=== PATIENT | female | born 1980 | race African-American/Black ===

== ENCOUNTER 2019-10-15 19:28 | Emergency (ER) | payer OTHER ==
--- NOTE | 2019-10-15 20:30 | CR ---
Lumbar spine: AP, lateral and coned-down lateral view centered to the lumbosacral junction were obtained. Mild posterior disc space narrowing is seen at L5-S1. Other disc spaces are maintained. Vertebral body heights are maintained. Mild scattered anterior endplate osteophytes are seen. Pedicles are intact. Transverse and spinous processes are also felt to be intact. Impression: 1. Slight degenerative change as noted above. 2. Nothing acute is appreciated on 3 view lumbar spine study. Diagnostic code #2 Study was dictated in MDT
[2019-10-15] MEDS ORDERED: metroNIDAZOLE 250 MG Tab PO ONE (21:12)
[2019-10-15] MEDS ORDERED: Fluconazole 150 MG Tab PO ONE (21:13)
--- NOTE | 2019-10-15 21:16 | EDM.PDOC ---
ED HPI GENERAL MEDICAL PROBLEM - General Chief Complaint: Back Pain or Injury Stated Complaint: BACK PAIN Time Seen by Provider: 10/15/19 19:38 Source of Information: Reports: Patient History Limitations: Reports: No Limitations - History of Present Illness INITIAL COMMENTS - FREE TEXT/NARRATIVE: HISTORY AND PHYSICAL: History of present illness: Patient is a 39-year-old female who presents to the emergency room with complaints of low back pain for approximately 3 weeks. She states the back pain is fairly constant but will fluctuate in severity. She has been trying to take walks more frequently as she thought maybe it was from sitting around. She denies any injury, trauma or falls. Pain does not improve or worsen with physical activity/stretching. Patient denies any fever, chills, headache, change in vision, syncope or near syncope. Denies any chest pain, back pain, shortness of breath or cough. Denies any abdominal pain, nausea, vomiting, diarrhea, constipation or dysuria. Has not noted any blood in urine or stool. Patient has been eating and drinking appropriately. Review of systems: As per history of present illness and below otherwise all systems reviewed and negative. Past medical history: As per history of present illness and as reviewed below otherwise noncontributory. Surgical history: As per history of present illness and as reviewed below otherwise noncontributory. Social history: See social history for further information Family history: As per history of present illness and as reviewed below otherwise noncontributory. Physical exam: General: Well-developed and well-nourished 39-year-old female. Alert and oriented. Nontoxic-appearing and in no acute distress. HEENT: Atraumatic, normocephalic, pupils equal and reactive bilaterally, negative for conjunctival pallor or scleral icterus, mucous membranes moist, TMs normal bilaterally, throat clear, neck supple, nontender, trachea midline. No drooling or trismus noted. No meningeal signs. No hot potato voice noted. Lungs: Clear to auscultation, breath sounds equal bilaterally, chest nontender. Heart: S1S2, regular rate and rhythm without overt murmur Abdomen: Soft, nondistended, nontender. Negative for masses or hepatosplenomegaly. Negative for costovertebral tenderness. Pelvis: Stable nontender. Genitourinary: Deferred. Rectal: Deferred. C-spine/Back: No pinpoint vertebral tenderness upon palpation. No crepitus, step-offs or obvious deformities. Patient is ambulatory into the emergency room without difficulty or deficit. Able to rock back on heels and walk on toes. Denies any urinary or fecal incontinence. Denies any numbness, tingling or saddle paresthesia. No concerns of serious infection, fracture or cord compression, or cauda equina syndrome. Deep tendon reflexes brisk bilaterally. Skin: Intact, warm, dry. No lesions or rashes noted. Extremities: Atraumatic, moves all extremities per self without difficulty or deficits, negative for cords or calf pain. Neurovascular unremarkable. Neuro: Awake, alert, oriented. Cranial nerves II through XII unremarkable. Cerebellum unremarkable. Motor and sensory unremarkable throughout. Exam nonfocal. Notes: X-ray shows slight degenerative changes. No acute findings are noted. Patient does have bacterial vaginosis and candidiasis noted on the OMAR swab. She will get her first dose for these here in the emergency room as the pharmacy is closed. We discussed signs and symptoms that would prompt her to return to the emergency room. 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 Medication and supportive care measures were reviewed and discussed. Voices understanding and is agreeable to plan of care. Denies any further questions or concerns at this time. Diagnostics: Bar spine x-ray, OMAR, UA, urine Therapeutics: Flagyl, Diflucan Prescription: Flagyl Voltaren Impression: Bacterial vaginosis Candidiasis Back Pain Plan: 1. You have a bacterial infection in your vagina. While taking the Flagyl - please abstain from alcohol and sexual intercourse. You can resume both activities once your antibiotic is completed. 2. Alternate Tylenol and/or ibuprofen as directed. 3. Follow up with your primary care provider as we discussed. Return to the ED as needed and as discussed. Definitive disposition and diagnosis as appropriate pending reevaluation and review of above. Lower Back Pain Score (Numeric/FACES): 10 - Related Data Allergies Allergy/AdvReac Type Severity Reaction Status Date / Time No Known Allergies Allergy Verified 10/15/19 19:48 Home Meds: Home Meds Diclofenac Sodium [Voltaren] 75 mg PO BIDMEALS PRN #30 tab.cr 10/15/19 [Rx] amLODIPine [Norvasc] 5 mg PO DAILY 10/15/19 [History] metroNIDAZOLE [Flagyl] 500 mg PO BID 7 Days #14 tab 10/15/19 [Rx] Past Medical History - Past Health History Medical/Surgical History: Denies Medical/Surgical History HEENT History: Reports: None Cardiovascular History: Reports: Hypertension Respiratory History: Reports: None Gastrointestinal History: Reports: None Genitourinary History: Reports: None 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 Musculoskeletal History: Reports: None Neurological History: Reports: None Psychiatric History: Reports: None Endocrine/Metabolic History: Reports: None Hematologic History: Reports: None Immunologic History: Reports: None Oncologic (Cancer) History: Reports: None Dermatologic History: Reports: None - Infectious Disease History Infectious Disease History: Reports: None - Past Surgical History Head Surgeries/Procedures: Reports: None Female Surgical History: Reports: None Social & Family History - Tobacco Use Smoking Status *Q: Never Smoker Second Hand Smoke Exposure: No - Caffeine Use Caffeine Use: Reports: None - Recreational Drug Use Recreational Drug Use: No ED ROS GENERAL - Review of Systems Review Of Systems: Comprehensive ROS is negative, except as noted in HPI. ED EXAM,LOWER BACK PAIN/INJURY - Physical Exam Exam: See Below (See dictation) Course - Vital Signs Last Recorded V/S: Last Vital Signs Temp 98.2 F 10/15/19 19:44 Pulse 117 H 10/15/19 19:44 Resp 18 10/15/19 19:44 BP 148/99 H 10/15/19 19:44 Pulse Ox 98 10/15/19 19:44 - Orders/Labs/Meds Labs: Laboratory Tests 10/15/19 10/15/19 10/15/19 Range/Units 19:55 19:55 20:03 Urine Color YELLOW Urine Appearance SLT CLOUDY Urine pH 6.0 (5.0-8.0) Ur Specific [place] 1.025 (1.001-1.035) Urine Protein NEGATIVE (NEGATIVE) mg/dL Urine Glucose (UA) NEGATIVE (NEGATIVE) mg/dL Urine Ketones NEGATIVE (NEGATIVE) mg/dL Urine Occult Blood MODERATE H (NEGATIVE) Urine Nitrite NEGATIVE (NEGATIVE) Urine Bilirubin NEGATIVE (NEGATIVE) Urine Urobilinogen 0.2 (<2.0) EU/dL Ur Leukocyte Esterase NEGATIVE (NEGATIVE) Urine RBC 3-5 (0-2/HPF) Urine WBC 0-2 (0-5/HPF) Ur Epithelial Cells RARE (NONE-FEW) Urine Bacteria RARE (NEGATIVE) Urine HCG, Qual NEGATIVE (NEGATIVE) Leana species DNA POSITIVE H (NEGATIVE) Gardnerella DNA Probe POSITIVE H (NEGATIVE) Trichomonas DNA Probe NEGATIVE (NEGATIVE) Meds: Medications Discontinued Medications Generic Name Dose Route Start Last Admin Trade Name Freq PRN Reason Stop Dose Admin Fluconazole 150 mg 10/15/19 21:13 10/15/19 21:35 Diflucan PO 10/15/19 21:14 150 mg ONETIME ONE Administration Metronidazole 500 mg 10/15/19 21:12 10/15/19 21:35 Metronidazole PO 10/15/19 21:13 500 mg ONETIME ONE Administration Departure - Departure Time of Disposition: 21:24 Disposition: Home, Self-Care 01 Clinical Impression: Candidiasis, Bacterial vaginosis Back pain Qualifiers: Back pain location: low back pain Chronicity: unspecified Back pain laterality: bilateral Sciatica presence: without sciatica Qualified Code(s): M54.5 - Low back pain - Discharge Information Prescriptions: metroNIDAZOLE [Flagyl] 500 mg PO BID 7 Days #14 tab Diclofenac Sodium [Voltaren] 75 mg PO BIDMEALS PRN #30 tab.cr PRN Reason: Pain Instructions: Bacterial Vaginosis, [id number] Referrals: PCP,Not In Area [Primary Care Provider] - Forms: ED Department Discharge Additional Instructions: The following information is given to patients seen in the emergency department who are being discharged to home. This information is to outline your options for follow-up care. We provide all patients seen in our emergency department with a follow-up referral. The need for follow-up, as well as the timing and circumstances, are variable depending upon the specifics of your emergency department visit. If you don't have a primary care physician on staff, we will provide you with a referral. We always advise you to contact your personal physician following an emergency department visit to inform them of the circumstance of the visit and for follow-up with them and/or the need for any referrals to a consulting specialist. The emergency department will also refer you to a specialist when appropriate. This referral assures that you have the opportunity for follow-up care with a specialist. All of these measure are taken in an effort to provide you with optimal care, which includes your follow-up. Under all circumstances we always encourage you to contact your private physician who remains a resource for coordinating your care. When calling for follow-up care, please make the office aware that this follow-up is from your recent emergency room visit. If for any reason you are refused follow-up, please contact the [facility] Emergency Department at and asked to speak to the emergency department charge nurse. [facility] [address] [place] [address] [facility] [address] [place] [address] 1. The x-ray of your back was normal, you do have some degenerative changes seen (age related wear and tear). You have a bacterial infection in your vagina, which is most likley the cause of your back pain. While taking the Flagyl - please abstain from alcohol and sexual intercourse. You can resume both acti vities once your antibiotic is completed. 2. Alternate Tylenol and/or ibuprofen as directed. 3. Follow up with your primary care provider as we discussed. Return to the ED as needed and as discussed. Sepsis Event Note (ED) - Evaluation Sepsis Screening Result: No Definite Risk - Focused Exam Vital Signs: Vital Signs Temp Pulse Resp BP Pulse Ox 10/15/19 19:44 98.2 F 117 H 18 148/99 H 98
== END 2019-10-15 21:40 | disposition home or self-care (01) ==
LOC: MW.ED 19:28
DX: M54.5 Low back pain (principal); B37.3 Candidiasis of vulva and vagina; I10 Essential (primary) hypertension; Z79.899 Other long term (current) drug therapy
CPT/HCPCS: 72100; 81001; 81025; 87480; 87510; 87660; 99283; A9270

== ENCOUNTER 2019-11-02 15:00 | Emergency (ER) | payer MEDICAID, OTHER ==
[2019-11-02] MEDS ORDERED: Sodium Chloride 0.9% 10 ML Syringe FLUSH PRN (15:50)
[2019-11-02] MEDS ORDERED: Sodium Chloride 0.9% 1,000 ML IV ONE (15:50)
[2019-11-02] MEDS ORDERED: Ketorolac 15 MG/ML SDV IVPUSH ONE (15:50)
[2019-11-02] MEDS ORDERED: Sodium Chloride 0.9% 2.5 ML Syringe FLUSH PRN (15:50)
--- NOTE | 2019-11-02 16:01 | EDM.PDOC ---
ED HPI GENERAL MEDICAL PROBLEM - General Chief Complaint: Abdominal Pain Stated Complaint: BACK PAIN Time Seen by Provider: 11/02/19 15:30 - History of Present Illness INITIAL COMMENTS - FREE TEXT/NARRATIVE: History of present illness: Patient presents with concerns about right flank pain radiating down the leg she states sometimes it is both sides and radiates to the both groins but mostly it is on the right side and radiates down to the right foot she is concerned about swelling in her hands and feet she denies any shortness of breath there is been no cough no fever no chills she denies any insect bites is also complaining of pain in all of her joints at different times for the past several days again no insect bite she is not have a history of arthritis she has not had any recent foreign travel no known exposures no rash no headache nothing seems to make it better or worse she denies dysuria but says she has frequency she denies any nausea vomiting or diarrhea. Review of systems: As per history of present illness and below otherwise all systems reviewed and negative. Past medical history: As per history of present illness and as reviewed below otherwise noncontributory. Surgical history: As per history of present illness and as reviewed below otherwise noncontributory. Social history: No reported history of drug or alcohol abuse. Family history: As per history of present illness and as reviewed below otherwise noncontributory. Physical exam: HEENT: Atraumatic, normocephalic, pupils reactive, negative for conjunctival pallor or scleral icterus, mucous membranes moist, throat clear, neck supple, nontender, trachea midline. Lungs: Clear to auscultation, breath sounds equal bilaterally, chest nontender. Heart: S1S2, regular, negative for clicks, rubs, or JVD. Abdomen: Soft, nondistended, nontender. Negative for masses or hepatosplenomegaly. Negative for costovertebral tenderness. Pelvis: Stable nontender. Genitourinary: Deferred. Rectal: Deferred. Extremities: Atraumatic, negative for cords or calf pain. Neurovascular unremarkable. States she has edema but I do not appreciate any notable peripheral edema in the upper or lower extremities. Neuro: Awake, alert, oriented. Cranial nerves II through XII unremarkable. Cerebellum unremarkable. Motor and sensory unremarkable throughout. Exam nonfocal. There is no saddle anesthesia great toe strength is 5 out of 5. Diagnostics: [] Therapeutics: [] Impression: Patient presents with some back pain also polyarthralgias she has frequency [] Plan: Patient will have some basic blood work done a urinalysis will be checked I will give her some Toradol for pain and some fluids for her tachycardia she will then be reassessed [] Definitive disposition and diagnosis as appropriate pending reevaluation and review of above. pain Pain Score (Numeric/FACES): 7 - Related Data Allergies Allergy/AdvReac Type Severity Reaction Status Date / Time No Known Allergies Allergy Verified 10/15/19 19:48 Home Meds: Home Meds Diclofenac Sodium [Voltaren] 75 mg PO BIDMEALS PRN #30 tab.cr 10/15/19 [Rx] amLODIPine [Norvasc] 5 mg PO DAILY 10/15/19 [History] Past Medical History - Past Health History Medical/Surgical History: Denies Medical/Surgical History HEENT History: Reports: None Cardiovascular History: Reports: Hypertension Respiratory History: Reports: None Gastrointestinal History: Reports: None Genitourinary History: Reports: None 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 Musculoskeletal History: Reports: None Neurological History: Reports: None Psychiatric History: Reports: None Endocrine/Metabolic History: Reports: None Hematologic History: Reports: None Immunologic History: Reports: None Oncologic (Cancer) History: Reports: None Dermatologic History: Reports: None - Infectious Disease History Infectious Disease History: Reports: None - Past Surgical History Head Surgeries/Procedures: Reports: None HEENT Surgical History: Reports: None Cardiovascular Surgical History: Reports: None GI Surgical History: Reports: None Female Surgical History: Reports: None Endocrine Surgical History: Reports: None Neurological Surgical History: Reports: None Musculoskeletal Surgical History: Reports: None Oncologic Surgical History: Reports: None Dermatological Surgical History: Reports: None Social & Family History - Family History Family Medical History: Noncontributory - Tobacco Use Smoking Status *Q: Never Smoker Second Hand Smoke Exposure: No - Caffeine Use Caffeine Use: Reports: None - Recreational Drug Use Recreational Drug Use: No ED ROS GENERAL - Review of Systems Review Of Systems: See Below ED EXAM, GENERAL - Physical Exam Exam: See Below Course - Vital Signs Text/Narrative:: Patient studies are fairly unremarkable with the exception of an elevated creatinine she was given some normal saline in the ED this improved her heart rate she had normal inflammatory markers normal white count so be discharged home on prednisone and tramadol for her back pain continues to follow-up with primary care doctor. Last Recorded V/S: Last Vital Signs Temp 36.9 C 11/02/19 15:30 Pulse 107 H 11/02/19 18:16 Resp 17 11/02/19 18:16 BP 147/97 H 11/02/19 18:16 Pulse Ox 99 11/02/19 18:16 - Orders/Labs/Meds Orders: Active Orders 24 hr Category Date Time Status Sodium Chloride 0.9% [Saline Flush] Med 11/02/19 15:50 Active 10 ml FLUSH ASDIRECTED PRN Sodium Chloride 0.9% [Saline Flush] Med 11/02/19 15:50 Active 2.5 ml FLUSH ASDIRECTED PRN Saline Lock Insert [OM.PC] Stat Oth 11/02/19 15:50 Ordered Medication Orders Sodium Chloride (Saline Flush) 10 ml FLUSH ASDIRECTED PRN PRN Reason: Keep Vein Open Sodium Chloride (Saline Flush) 2.5 ml FLUSH ASDIRECTED PRN PRN Reason: Keep Vein Open Labs: Laboratory Tests 11/02/19 11/02/19 11/02/19 Range/Units 15:34 15:34 16:12 WBC 9.85 (4.0-11.0) K/uL RBC 5.11 (4.30-5.90) M/uL Hgb 15.7 (12.0-16.0) g/dL Hct 47.2 H (36.0-46.0) % MCV 92.4 (80.0-98.0) fL MCH 30.7 (27.0-32.0) pg MCHC 33.3 (31.0-37.0) g/dL RDW Std Deviation 43.3 (28.0-62.0) fl RDW Coeff of Tanner 13 (11.0-15.0) % Plt Count 243 (150-400) K/uL MPV 11.40 (7.40-12.00) fL Neut % (Auto) 52.9 (48.0-80.0) % Lymph % (Auto) 38.7 (16.0-40.0) % [place] % (Auto) 7.8 (0.0-15.0) % Eos % (Auto) 0.4 (0.0-7.0) % Baso % (Auto) 0.2 (0.0-1.5) % Neut # (Auto) 5.2 (1.4-5.7) K/uL Lymph # (Auto) 3.8 H (0.6-2.4) K/uL [place] # (Auto) 0.8 (0.0-0.8) K/uL Eos # (Auto) 0.0 (0.0-0.7) K/uL Baso # (Auto) 0.0 (0.0-0.1) K/uL Nucleated RBC % 0.0 /100WBC Nucleated RBCs # 0 K/uL ESR (0-19) mm/hr Sodium (136-145) mmol/L Potassium (3.5-5.1) mmol/L Chloride (98-107) mmol/L Carbon Dioxide (21.0-32.0) mmol/L BUN (7.0-18.0) mg/dL Creatinine (0.6-1.0) mg/dL Est Cr Clr Drug Dosing mL/min Estimated GFR (MDRD) ml/min Glucose (74-106) mg/dL Calcium (8.5-10.1) mg/dL Total Bilirubin (0.2-1.0) mg/dL AST (15-37) IU/L ALT (14-63) IU/L Alkaline Phosphatase (46-116) U/L C-Reactive Protein (0.00-0.90) mg/dL Total Protein (6.4-8.2) g/dL Albumin (3.4-5.0) g/dL Globulin (2.6-4.0) g/dL Albumin/Globulin Ratio (0.9-1.6) Urine Color YELLOW Urine Appearance HAZY Urine pH 7.0 (5.0-8.0) Ur Specific [place] 1.010 (1.001-1.035) Urine Protein NEGATIVE (NEGATIVE) mg/dL Urine Glucose (UA) NEGATIVE (NEGATIVE) mg/dL Urine Ketones NEGATIVE (NEGATIVE) mg/dL Urine Occult Blood TRACE-INTACT H (NEGATIVE) Urine Nitrite NEGATIVE (NEGATIVE) Urine Bilirubin NEGATIVE (NEGATIVE) Urine Urobilinogen 0.2 (<2.0) EU/dL Ur Leukocyte Esterase NEGATIVE (NEGATIVE) Urine RBC 1-5 (0-2/HPF) Urine WBC 0-2 (0-5/HPF) Ur Epithelial Cells FEW (NONE-FEW) Urine Bacteria RARE (NEGATIVE) Urine HCG, Qual NEGATIVE (NEGATIVE) 11/02/19 11/02/19 Range/Units 16:12 16:12 WBC (4.0-11.0) K/uL RBC (4.30-5.90) M/uL Hgb (12.0-16.0) g/dL Hct (36.0-46.0) % MCV (80.0-98.0) fL MCH (27.0-32.0) pg MCHC (31.0-37.0) g/dL RDW Std Deviation (28.0-62.0) fl RDW Coeff of Tanner (11.0-15.0) % Plt Count (150-400) K/uL MPV (7.40-12.00) fL Neut % (Auto) (48.0-80.0) % Lymph % (Auto) (16.0-40.0) % [place] % (Auto) (0.0-15.0) % Eos % (Auto) (0.0-7.0) % Baso % (Auto) (0.0-1.5) % Neut # (Auto) (1.4-5.7) K/uL Lymph # (Auto) (0.6-2.4) K/uL [place] # (Auto) (0.0-0.8) K/uL Eos # (Auto) (0.0-0.7) K/uL Baso # (Auto) (0.0-0.1) K/uL Nucleated RBC % /100WBC Nucleated RBCs # K/uL ESR 4 (0-19) mm/hr Sodium 136 (136-145) mmol/L Potassium 3.9 (3.5-5.1) mmol/L Chloride 99 (98-107) mmol/L Carbon Dioxide 26.7 (21.0-32.0) mmol/L BUN 17 (7.0-18.0) mg/dL Creatinine 1.6 H (0.6-1.0) mg/dL Est Cr Clr Drug Dosing 41.64 mL/min Estimated GFR (MDRD) 43.1 ml/min Glucose 130 H (74-106) mg/dL Calcium 10.0 (8.5-10.1) mg/dL Total Bilirubin 0.3 (0.2-1.0) mg/dL AST 25 (15-37) IU/L ALT 32 (14-63) IU/L Alkaline Phosphatase 72 (46-116) U/L C-Reactive Protein <0.20 (0.00-0.90) mg/dL Total Protein 8.6 H (6.4-8.2) g/dL Albumin 4.1 (3.4-5.0) g/dL Globulin 4.5 H (2.6-4.0) g/dL Albumin/Globulin Ratio 0.9 (0.9-1.6) Urine Color Urine Appearance Urine pH (5.0-8.0) Ur Specific [place] (1.001-1.035) Urine Protein (NEGATIVE) mg/dL Urine Glucose (UA) (NEGATIVE) mg/dL Urine Ketones (NEGATIVE) mg/dL Urine Occult Blood (NEGATIVE) Urine Nitrite (NEGATIVE) Urine Bilirubin (NEGATIVE) Urine Urobilinogen (<2.0) EU/dL Ur Leukocyte Esterase (NEGATIVE) Urine RBC (0-2/HPF) Urine WBC (0-5/HPF) Ur Epithelial Cells (NONE-FEW) Urine Bacteria (NEGATIVE) Urine HCG, Qual (NEGATIVE) Meds: Medications Generic Name Dose Route Start Last Admin Trade Name Freq PRN Reason Stop Dose Admin Sodium Chloride 10 ml 11/02/19 15:50 Saline Flush FLUSH ASDIRECTED PRN Keep Vein Open Sodium Chloride 2.5 ml 11/02/19 15:50 Saline Flush FLUSH ASDIRECTED PRN Keep Vein Open Discontinued Medications Generic Name Dose Route Start Last Admin Trade Name Freq PRN Reason Stop Dose Admin Sodium Chloride 1,000 mls @ 999 mls/hr 11/02/19 15:50 11/02/19 16:13 Normal Saline IV 11/02/19 16:50 999 mls/hr .Bolus ONE Administration Ketorolac Tromethamine 30 mg 11/02/19 15:50 11/02/19 16:14 Toradol IVPUSH 11/02/19 15:51 30 mg ONETIME ONE Administration Departure - Departure Time of Disposition: 18:15 Disposition: Home, Self-Care 01 Condition: Good Clinical Impression: Polyarthritis, Low back pain, non-specific - Discharge Information *PRESCRIPTION DRUG MONITORING PROGRAM REVIEWED*: Not Applicable *COPY OF PRESCRIPTION DRUG MONITORING REPORT IN PATIENT CHRISTA: Not Applicable Instructions: Acute Back Pain, Adult Referrals: PCP,Unknown [Primary Care Provider] - Forms: ED Department Discharge Additional Instructions: The following information is given to patients seen in the emergency department who are being discharged to home. This information is to outline your options for follow-up care. We provide all patients seen in our emergency department with a follow-up referral. The need for follow-up, as well as the timing and circumstances, are variable depending upon the specifics of your emergency department visit. If you don't have a primary care physician on staff, we will provide you with a referral. We always advise you to contact your personal physician following an emergency department visit to inform them of the circumstance of the visit and for follow-up with them and/or the need for any referrals to a consulting specialist. The emergency department will also refer you to a specialist when appropriate. This referral assures that you have the opportunity for follow-up care with a specialist. All of these measure are taken in an effort to provide you with optimal care, which includes your follow-up. Under all circumstances we always encourage you to contact your private physician who remains a resource for coordinating your care. When calling for follow-up care, please make the office aware that this follow-up is from your recent emergency room visit. If for any reason you are refused follow-up, please contact the [facility] Emergency Department at and asked to speak to the emergency department charge nurse. [facility] - Primary Care [address] [place] [address] [id number] [address] [address] Sepsis Event Note (ED) - Evaluation Sepsis Screening Result: No Definite Risk - Focused Exam Vital Signs: Vital Signs Temp Pulse Resp BP Pulse Ox 11/02/19 18:16 107 H 17 147/97 H 99 11/02/19 15:30 36.9 C 126 H 17 154/116 H 97 - My Orders Last 24 Hours: My Active Orders 11/02/19 15:50 Sodium Chloride 0.9% [Saline Flush] 10 ml FLUSH ASDIRECTED PRN Sodium Chloride 0.9% [Saline Flush] 2.5 ml FLUSH ASDIRECTED PRN Saline Lock Insert [OM.PC] Stat - Assessment/Plan Last 24 Hours: My Active Orders 11/02/19 15:50 Sodium Chloride 0.9% [Saline Flush] 10 ml FLUSH ASDIRECTED PRN Sodium Chloride 0.9% [Saline Flush] 2.5 ml FLUSH ASDIRECTED PRN Saline Lock Insert [OM.PC] Stat
[2019-11-02 16:50] LABS: BLOOD UREA NITROGEN,BUN 17 mg/dL (7.0-18.0); CARBON DIOXIDE,CO2 26.7 mmol/L (21.0-32.0); CHLORIDE,CL 99 mmol/L (98-107); GLUCOSE RANDOM 130 mg/dL (74-106); POTASSIUM,K 3.9 mmol/L (3.5-5.1); SODIUM,NA 136 mmol/L (136-145)
== END 2019-11-02 18:35 | disposition home or self-care (01) ==
LOC: MW.ED 15:00
DX: M13.0 Polyarthritis, unspecified (principal); I10 Essential (primary) hypertension; Z79.899 Other long term (current) drug therapy
CPT/HCPCS: 36415; 80053; 81001; 81025; 85025; 85652; 86140; 96374; 99284; J1885; J7030

== ENCOUNTER 2020-01-27 02:00 | Day surgery (SDC) | payer MEDICAID, OTHER ==
[2020-01-27] MEDS ORDERED: Morphine 4 MG/ML Syringe ONE (02:41)
[2020-01-27] MEDS ORDERED: Morphine 4 MG/ML Syringe IVPUSH ONE (02:42)
[2020-01-27 03:46] LABS: BLOOD UREA NITROGEN,BUN 15 mg/dL (7.0-18.0); CHLORIDE,CL 104 mmol/L (98-107); GLUCOSE RANDOM 106 mg/dL (74-106); POTASSIUM,K 3.8 mmol/L (3.5-5.1); SODIUM,NA 138 mmol/L (136-145)
[2020-01-27] MEDS ORDERED: Morphine 4 MG/ML Syringe IVPUSH PRN (04:49)
--- NOTE | 2020-01-27 04:54 | EDM.PDOC ---
ED HPI GENERAL MEDICAL PROBLEM - General Chief Complaint: Abdominal Pain Stated Complaint: ABDOMINAL PAIN Time Seen by Provider: 01/27/20 02:18 - History of Present Illness INITIAL COMMENTS - FREE TEXT/NARRATIVE: CHIEF COMPLAINT(S): Vaginal bleeding and pelvic pain HISTORY OF PRESENT ILLNESS: This is a 39-year-old woman without any significant past medical history who comes to the emergency department with a chief complaint of vaginal bleeding and pelvic pain. The patient states that prior to arrival she started to experience crampy abdominal pain located in the pelvic region with pain in her lower back. She describes the pain as sharp and constant. She rates it as a 10 out of 10. She states that she is also experiencing vaginal bleeding which is heavy. She states that she has not had a menstrual period in the last 3 months. She states that she has not seen an cementer and does not know if she is . She denies any vaginal discharge, dysuria, hematuria. REVIEW OF SYSTEMS: Constitutional: Denies fever, chills. Eyes: Denies eye pain Ears, Nose, Mouth, & Throat: Denies earache Cardiovascular: Denies chest pain Respiratory: Denies shortness of breath Gastrointestinal: Denies Nausea, vomiting, diarrhea, hematochezia. Genitourinary: Positive for vaginal bleeding and pelvic pain. Denies hematuria, dysuria, vaginal discharge MSK: Positive for lower back pain Neurological: Denies blurred vision Psychiatric: Denies depression PAST MEDICAL HISTORY: As per history of present illness and as reviewed below otherwise noncontributory. SURGICAL HISTORY: As per history of present illness and as reviewed below otherwise noncontributory. LMP: Approximately 3 months ago SOCIAL HISTORY: As per history of present illness and as reviewed below otherwise noncontributory. FAMILY HISTORY: As per history of present illness and as reviewed below otherwise noncontributory. EXAMINATION OF ORGAN SYSTEMS/BODY AREAS: Constitutional: Blood pressure was 149/112, heart rate 77, respiratory rate 22 with an oxygen saturation 9 9% on room air. Temperature 36.0 General: Young woman who is walking around the room and appears in pain. Psychiatric: Appropriate mood and affect. Eyes: No scleral icterus or conjunctival erythema conjunctiva is not pale ENMT: Moist mucous membranes. No pharyngeal erythema no pale mucous membranes. Cardiovascular: Regular, rate, and rhythym. No gallops, murmurs, or rubs. Bilateral upper extremity pulses symmetric and intact. No peripheral edema. No JVD. Respiratory: Lungs clear to auscultation bilaterally. No wheezes, rales, or rhonchi. Gastrointestinal: Soft, non-tender, non-distended. Normoactive bowel sounds Genitourinary: Positive for suprapubic tenderness. No rebound or guarding. Musculoskeletal: Normal range of motion. No tenderness to palpation of the lower lumbar area. Skin: No lesions or abrasions. Neurological: Alert, GCS 15 MEDICAL DECISION MAKING AND COURSE IN THE ED WITH INTERPRETATION/REVIEW OF DIAGNOSTIC STUDIES: This is a 39-year-old woman without any significant past medical history who comes to the emergency department with pelvic pain associated with heavy vaginal bleeding who is mildly hypertensive but is not tachycardic. At this time given that the patient does not know if she is or not we will obtain a [id number] test. Also obtain a urinalysis. Differential at this time includes , ectopic , cystitis, PID. [id number] test came back positive. After test came back positive I did discuss that with the patient. I did discuss with her at this time that given the heavy vaginal bleeding I would like to perform a bedside ultrasound. Bedside ultrasound was performed with RN senior sharepoint architect in presence. On transabdominal ultrasound there was no obvious free fluid in the abdomen and images were difficult to obtain to evaluate for intrauterine . Therefore RN contacted ultrasound for formal ultrasound. At this time given that the patient is I did obtain CBC, BMP, type and screen, quantitative hCG, and coags. We placed the patient on cardiac monitoring and pulse oximetry. Ultrasound did come by and evaluate the patient. Preliminary read by technology resource teacher is left ectopic with a significant amount of free fluid in the abdomen. At this time given concern for ruptured ectopic I did contact Dr. Elliott who stated that he would take the patient to the operating room at approximately 9 AM and will be admitted to the hospital. This was discussed with RN mill house supervisor. The patient is O+ therefore no RhoGam will be administered. The radiological images were viewed by myself along with reading the report from the radiologist. Transvaginal OB ultrasound reveals no intrauterine gestation. There is a hypoechoic vascular lesion adjacent to the left ovary suspicious for ectopic . Laboratory: CBC is in within normal limits. Coags are within normal limits. BMP reveals mildly elevated creatinine at 1.1 otherwise unremarkable. Quantitative hCG was 4142. O+ Urinaylysis was a clean catch and was negative for leukocyte esterase, negative for nitrites, and positive for blood. WBC count 0-2. Interpretation: Hematuria DISPOSITION: Patient was admitted to the hospital under Dr. Elliott CONDITION: Serious PROCEDURES: None FINAL IMPRESSION(S)/DIAGNOSES: 1. Acute ectopic Cheikh Koehler M.D. lower abdomen Pain Score (Numeric/FACES): 10 - Related Data Allergies Allergy/AdvReac Type Severity Reaction Status Date / Time No Known Allergies Allergy Verified 01/27/20 02:15 Home Meds: Home Meds Diclofenac Sodium [Voltaren] 75 mg PO BIDMEALS PRN #30 tab.cr 10/15/19 [Rx] amLODIPine [Norvasc] 5 mg PO DAILY 10/15/19 [History] predniSONE 60 mg PO WITHBREAKFAST 5 Days #15 tab 11/02/19 [Rx] traMADol [Ultram] 50 mg PO Q6H #15 tab 11/02/19 [Rx] Past Medical History - Past Health History Medical/Surgical History: Denies Medical/Surgical History HEENT History: Reports: None Cardiovascular History: Reports: Hypertension Respiratory History: Reports: None Gastrointestinal History: Reports: None Genitourinary History: Reports: None LITERACY TUTOR History: Reports: None Musculoskeletal History: Reports: None Neurological History: Reports: None Psychiatric History: Reports: None Endocrine/Metabolic History: Reports: None Hematologic History: Reports: None Immunologic History: Reports: None Oncologic (Cancer) History: Reports: None Dermatologic History: Reports: None - Infectious Disease History Infectious Disease History: Reports: None - Past Surgical History Head Surgeries/Procedures: Reports: None HEENT Surgical History: Reports: None Cardiovascular Surgical History: Reports: None GI Surgical History: Reports: None Female Surgical History: Reports: None Endocrine Surgical History: Reports: None Neurological Surgical History: Reports: None Musculoskeletal Surgical History: Reports: None Oncologic Surgical History: Reports: None Dermatological Surgical History: Reports: None Social & Family History - Family History Family Medical History: Noncontributory - Tobacco Use Smoking Status *Q: Never Smoker - Caffeine Use Caffeine Use: Reports: None - Recreational Drug Use Recreational Drug Use: No ED ROS GENERAL - Review of Systems Review Of Systems: See Below ED EXAM, GENERAL - Physical Exam Exam: See Below Course - Vital Signs Last Recorded V/S: Last Vital Signs Temp 36.0 C L 01/27/20 02:12 Pulse 82 01/27/20 05:36 Resp 16 01/27/20 05:36 BP 113/69 01/27/20 05:36 Pulse Ox 97 01/27/20 05:36 - Orders/Labs/Meds Orders: Active Orders 24 hr Category Date Time Status Admission Status [Patient Status] [ADT] Stat ADT 01/27/20 04:50 Active Activity as Tolerated [RC] .Routine Care 01/27/20 04:54 Active Cardiac Monitoring [RC] . DIRECTED Care 01/27/20 03:19 Active Vital Signs [RC] Q4H Care 01/27/20 04:54 Active NPO Now [Nothing per Oral Now Diet] [DIET] Diet 01/27/20 Breakfast Active RED BLOOD CELLS LP [BBK] Stat Lab 01/27/20 03:23 Results TYPE AND SCREEN [BBK] Stat Lab 01/27/20 03:23 Results Lactated Ringers [Ringers, Lactated] 1,000 ml Med 01/27/20 05:00 Active IV ASDIRECTED Morphine Med 01/27/20 04:49 Active 4 mg IVPUSH Q4H PRN Medication Orders Lactated Ringer's (Ringers, Lactated) 1,000 mls @ 125 mls/hr IV ASDIRECTED TEMITOPE Morphine Sulfate (Morphine) 4 mg IVPUSH Q4H PRN PRN Reason: Abdominal Pain Labs: Laboratory Tests 01/27/20 01/27/20 01/27/20 Range/Units 02:30 02:30 02:34 WBC 7.97 (4.0-11.0) K/uL RBC 4.46 (4.30-5.90) M/uL Hgb 13.9 (12.0-16.0) g/dL Hct 41.7 (36.0-46.0) % MCV 93.5 (80.0-98.0) fL MCH 31.2 (27.0-32.0) pg MCHC 33.3 (31.0-37.0) g/dL RDW Std Deviation 46.8 (28.0-62.0) fl RDW Coeff of Tanner 14 (11.0-15.0) % Plt Count 193 (150-400) K/uL MPV 11.60 (7.40-12.00) fL Neut % (Auto) 46.1 L (48.0-80.0) % Lymph % (Auto) 42.2 H (16.0-40.0) % [place] % (Auto) 8.7 (0.0-15.0) % Eos % (Auto) 2.5 (0.0-7.0) % Baso % (Auto) 0.5 (0.0-1.5) % Neut # (Auto) 3.7 (1.4-5.7) K/uL Lymph # (Auto) 3.4 H (0.6-2.4) K/uL [place] # (Auto) 0.7 (0.0-0.8) K/uL Eos # (Auto) 0.2 (0.0-0.7) K/uL Baso # (Auto) 0.0 (0.0-0.1) K/uL Nucleated RBC % 0.0 /100WBC Nucleated RBCs # 0 K/uL INR Sodium (136-145) mmol/L Potassium (3.5-5.1) mmol/L Chloride (98-107) mmol/L Carbon Dioxide (21.0-32.0) mmol/L BUN (7.0-18.0) mg/dL Creatinine (0.6-1.0) mg/dL Est Cr Clr Drug Dosing Estimated GFR (MDRD) ml/min Glucose (74-106) mg/dL Calcium (8.5-10.1) mg/dL HCG, Quant mIU/mL Urine Color YELLOW Urine Appearance SLT CLOUDY Urine pH 6.5 (5.0-8.0) Ur Specific [place] 1.025 (1.001-1.035) Urine Protein NEGATIVE (NEGATIVE) mg/dL Urine Glucose (UA) NEGATIVE (NEGATIVE) mg/dL Urine Ketones NEGATIVE (NEGATIVE) mg/dL Urine Occult Blood MODERATE H (NEGATIVE) Urine Nitrite NEGATIVE (NEGATIVE) Urine Bilirubin NEGATIVE (NEGATIVE) Urine Urobilinogen 0.2 (<2.0) EU/dL Ur Leukocyte Esterase NEGATIVE (NEGATIVE) Urine RBC 8-12 (0-2/HPF) Urine WBC 0-2 (0-5/HPF) Ur Epithelial Cells OCCASIONAL (NONE-FEW) Urine Bacteria RARE (NEGATIVE) Urine HCG, Qual POSITIVE (NEGATIVE) SARS-CoV-2 RNA (AMANDA) (NEGATIVE) Blood Type Antibody Screen Crossmatch 01/27/20 01/27/20 01/27/20 Range/Units 02:34 02:34 03:23 WBC (4.0-11.0) K/uL RBC (4.30-5.90) M/uL Hgb (12.0-16.0) g/dL Hct (36.0-46.0) % MCV (80.0-98.0) fL MCH (27.0-32.0) pg MCHC (31.0-37.0) g/dL RDW Std Deviation (28.0-62.0) fl RDW Coeff of [place] (11.0-15.0) % Plt Count (150-400) K/uL MPV (7.40-12.00) fL Neut % (Auto) (48.0-80.0) % Lymph % (Auto) (16.0-40.0) % [place] % (Auto) (0.0-15.0) % Eos % (Auto) (0.0-7.0) % Baso % (Auto) (0.0-1.5) % Neut # (Auto) (1.4-5.7) K/uL Lymph # (Auto) (0.6-2.4) K/uL [place] # (Auto) (0.0-0.8) K/uL Eos # (Auto) (0.0-0.7) K/uL Baso # (Auto) (0.0-0.1) K/uL Nucleated RBC % /100WBC Nucleated RBCs # K/uL INR 1.05 Sodium 138 (136-145) mmol/L Potassium 3.8 (3.5-5.1) mmol/L Chloride 104 (98-107) mmol/L Carbon Dioxide 25.0 (21.0-32.0) mmol/L BUN 15 (7.0-18.0) mg/dL Creatinine 1.1 H (0.6-1.0) mg/dL Est Cr Clr Drug Dosing TNP Estimated GFR (MDRD) > 60.0 ml/min Glucose 106 (74-106) mg/dL Calcium 9.1 (8.5-10.1) mg/dL HCG, Quant 4142.0 mIU/mL Urine Color Urine Appearance Urine pH (5.0-8.0) Ur Specific [place] (1.001-1.035) Urine Protein (NEGATIVE) mg/dL Urine Glucose (UA) (NEGATIVE) mg/dL Urine Ketones (NEGATIVE) mg/dL Urine Occult Blood (NEGATIVE) Urine Nitrite (NEGATIVE) Urine Bilirubin (NEGATIVE) Urine Urobilinogen (<2.0) EU/dL Ur Leukocyte Esterase (NEGATIVE) Urine RBC (0-2/HPF) Urine WBC (0-5/HPF) Ur Epithelial Cells (NONE-FEW) Urine Bacteria (NEGATIVE) Urine HCG, Qual (NEGATIVE) SARS-CoV-2 RNA (AMANDA) (NEGATIVE) Blood Type O POSITIVE Antibody Screen NEGATIVE Crossmatch See Detail 01/27/20 Range/Units 04:40 WBC (4.0-11.0) K/uL RBC (4.30-5.90) M/uL Hgb (12.0-16.0) g/dL Hct (36.0-46.0) % MCV (80.0-98.0) fL MCH (27.0-32.0) pg MCHC (31.0-37.0) g/dL RDW Std Deviation (28.0-62.0) fl RDW Coeff of Tanner (11.0-15.0) % Plt Count (150-400) K/uL MPV (7.40-12.00) fL Neut % (Auto) (48.0-80.0) % Lymph % (Auto) (16.0-40.0) % [place] % (Auto) (0.0-15.0) % Eos % (Auto) (0.0-7.0) % Baso % (Auto) (0.0-1.5) % Neut # (Auto) (1.4-5.7) K/uL Lymph # (Auto) (0.6-2.4) K/uL [place] # (Auto) (0.0-0.8) K/uL Eos # (Auto) (0.0-0.7) K/uL Baso # (Auto) (0.0-0.1) K/uL Nucleated RBC % /100WBC Nucleated RBCs # K/uL INR Sodium (136-145) mmol/L Potassium (3.5-5.1) mmol/L Chloride (98-107) mmol/L Carbon Dioxide (21.0-32.0) mmol/L BUN (7.0-18.0) mg/dL Creatinine (0.6-1.0) mg/dL Est Cr Clr Drug Dosing Estimated GFR (MDRD) ml/min Glucose (74-106) mg/dL Calcium (8.5-10.1) mg/dL HCG, Quant mIU/mL Urine Color Urine Appearance Urine pH (5.0-8.0) Ur Specific [place] (1.001-1.035) Urine Protein (NEGATIVE) mg/dL Urine Glucose (UA) (NEGATIVE) mg/dL Urine Ketones (NEGATIVE) mg/dL Urine Occult Blood (NEGATIVE) Urine Nitrite (NEGATIVE) Urine Bilirubin (NEGATIVE) Urine Urobilinogen (<2.0) EU/dL Ur Leukocyte Esterase (NEGATIVE) Urine RBC (0-2/HPF) Urine WBC (0-5/HPF) Ur Epithelial Cells (NONE-FEW) Urine Bacteria (NEGATIVE) Urine HCG, Qual (NEGATIVE) SARS-CoV-2 RNA (AMANDA) NEGATIVE (NEGATIVE) Blood Type Antibody Screen Crossmatch Meds: Medications Generic Name Dose Route Start Last Admin Trade Name Freq PRN Reason Stop Dose Admin Lactated Ringer's 1,000 mls @ 125 mls/hr 01/27/20 05:00 Ringers, Lactated IV ASDIRECTED TEMITOPE Morphine Sulfate 4 mg 01/27/20 04:49 Morphine IVPUSH Q4H PRN Abdominal Pain Discontinued Medications Generic Name Dose Route Start Last Admin Trade Name Freq PRN Reason Stop Dose Admin Morphine Sulfate 4 mg 01/27/20 02:42 01/27/20 02:43 Morphine IVPUSH 01/27/20 02:43 4 mg ONETIME ONE Administration Morphine Sulfate Confirm 01/27/20 02:41 01/27/20 02:51 Morphine Administered 01/27/20 02:42 Not Given Dose 4 mg .ROUTE .STK-MED ONE Departure - Departure Time of Disposition: 05:53 Disposition: Admitted As Inpatient 64 Condition: Serious Clinical Impression: Ectopic Qualifiers: Location of ectopic : ovarian Intrauterine status: without intrauterine Laterality: left Qualified Code(s): O00.202 - Left ovarian without intrauterine - Discharge Information *PRESCRIPTION DRUG MONITORING PROGRAM REVIEWED*: No *COPY OF PRESCRIPTION DRUG MONITORING REPORT IN PATIENT CHRISTA: No Sepsis Event Note (ED) - Evaluation Sepsis Screening Result: No Definite Risk - Focused Exam Vital Signs: Vital Signs Temp Pulse Resp BP Pulse Ox 01/27/20 05:36 82 16 113/69 97 01/27/20 04:48 85 18 122/87 100 01/27/20 04:15 75 20 126/71 99 01/27/20 02:12 36.0 C L 77 22 H 149/112 H 99 - My Orders Last 24 Hours: My Active Orders 01/27/20 03:19 Cardiac Monitoring [RC] . DIRECTED 01/27/20 03:23 TYPE AND SCREEN [BBK] Stat - Assessment/Plan Last 24 Hours: My Active Orders 01/27/20 03:19 Cardiac Monitoring [RC] . DIRECTED 01/27/20 03:23 TYPE AND SCREEN [BBK] Stat
[2020-01-27] MEDS ORDERED: Lactated Ringers 1,000 ML IV SCH (05:00)
--- NOTE | 2020-01-27 05:33 | US ---
INDICATION: Vaginal bleeding, . Quantitative beta hCG 4000. TECHNIQUE: Ultrasound OB pelvis transabdominal. Real-time levine-scale imaging of the pelvis was performed. COMPARISON: None FINDINGS: Uterus is anteverted measuring 10.1 x 5.5 x 6.2 centimeters. Endometrium measures 12 millimeters without intrauterine gestational sac. Hypoechoic intramural lesions measuring 1.1 and 2.6 centimeters consistent with fibroids. Left ovary measures 3.4 x 3.3 x 4.9 centimeters. Adjacent to the left ovary is a hypoechoic vascular lesion measuring 3.4 x 3.0 x 2.8 centimeters. Right upper measures 1.9 x 1.2 x 2.5 centimeters and is unremarkable small free fluid. IMPRESSION: 1. No intrauterine gestation seen. Hypoechoic vascular lesion adjacent to the left ovary suspicious for an ectopic in this clinical setting. 2. Leiomyomatous uterus. Dictated by Jorge Ramirez MD @ Jan 27 2020 5:26AM Signed by Dr. Jorge Ramirez @ Jan 27 2020 5:31AM
[2020-01-27] MEDS ORDERED: Dexamethasone 4 MG/ML 5 ML MDV ONE (08:22)
[2020-01-27] MEDS ORDERED: Ondansetron 4 MG/2 ML SDV ONE (08:22)
[2020-01-27] MEDS ORDERED: Rocuronium Bromide 50 MG/5 ML Syringe ONE (08:22)
[2020-01-27] MEDS ORDERED: Lidocaine 2% 5 ML SDV ONE (08:22)
[2020-01-27] MEDS ORDERED: fentaNYL 250 MCG/5 ML SDV ONE (08:23)
[2020-01-27] MEDS ORDERED: Propofol 200 MG/20 ML SDV ONE ×2 (08:23→08:32)
[2020-01-27] MEDS ORDERED: Midazolam 1 MG/ML 2 ML SDV ONE (08:23)
[2020-01-27] MEDS ORDERED: Octyl 2-Cyanoacrylate 1 Tube ONE (08:33)
--- NOTE | 2020-01-27 08:54 | PCM.PREANE ---
Preanesthetic Assessment - Procedure Proposed Procedure: diagnostic laparotomy for ectopic - Anesthesia/Transfusion/Family Hx Anesthesia History: Prior Anesthesia Without Reaction Family History of Anesthesia Reaction: No Transfusion History: No Prior Transfusion(s) - Review of Systems General: No Symptoms Pulmonary: No Symptoms Cardiovascular: No Symptoms Gastrointestinal: No Symptoms, Abdominal Pain Neurological: No Symptoms Other: Reports: None - Physical Assessment NPO Status Date: 01/27/20 NPO Status Time: 20:00 Vital Signs: Last Vital Signs Temp 36.6 C 01/27/20 08:00 Pulse 77 01/27/20 08:00 Resp 17 01/27/20 08:00 BP 109/65 01/27/20 08:00 Pulse Ox 98 01/27/20 08:00 Height: 5 ft 5 in Weight: 80.2 kg ASA Class: 2 Mental Status: Alert & Oriented x3 Airway Class: Mallampati = 2 Dentition: Reports: Normal Dentition Thyro-Mental Finger Breadths: 3 Mouth Opening Finger Breadths: 3 ROM/Head Extension: Full Lungs: Clear to Auscultation, Normal Respiratory Effort Cardiovascular: Regular Rate, Regular Rhythm - Lab Values: Laboratory Last Values WBC 7.97 K/uL (4.0-11.0) 01/27/20 02:34 RBC 4.46 M/uL (4.30-5.90) 01/27/20 02:34 Hgb 13.9 g/dL (12.0-16.0) 01/27/20 02:34 Hct 41.7 % (36.0-46.0) 01/27/20 02:34 MCV 93.5 fL (80.0-98.0) 01/27/20 02:34 MCH 31.2 pg (27.0-32.0) 01/27/20 02:34 MCHC 33.3 g/dL (31.0-37.0) 01/27/20 02:34 RDW Std Deviation 46.8 fl (28.0-62.0) 01/27/20 02:34 RDW Coeff of Tanner 14 % (11.0-15.0) 01/27/20 02:34 Plt Count 193 K/uL (150-400) 01/27/20 02:34 MPV 11.60 fL (7.40-12.00) 01/27/20 02:34 Neut % (Auto) 46.1 % (48.0-80.0) L 01/27/20 02:34 Lymph % (Auto) 42.2 % (16.0-40.0) H 01/27/20 02:34 [place] % (Auto) 8.7 % (0.0-15.0) 01/27/20 02:34 Eos % (Auto) 2.5 % (0.0-7.0) 01/27/20 02:34 Baso % (Auto) 0.5 % (0.0-1.5) 01/27/20 02:34 Neut # (Auto) 3.7 K/uL (1.4-5.7) 01/27/20 02:34 Lymph # (Auto) 3.4 K/uL (0.6-2.4) H 01/27/20 02:34 [place] # (Auto) 0.7 K/uL (0.0-0.8) 01/27/20 02:34 Eos # (Auto) 0.2 K/uL (0.0-0.7) 01/27/20 02:34 Baso # (Auto) 0.0 K/uL (0.0-0.1) 01/27/20 02:34 Nucleated RBC % 0.0 /100WBC 01/27/20 02:34 Nucleated RBCs # 0 K/uL 01/27/20 02:34 INR 1.05 01/27/20 02:34 Sodium 138 mmol/L (136-145) 01/27/20 02:34 Potassium 3.8 mmol/L (3.5-5.1) 01/27/20 02:34 Chloride 104 mmol/L (98-107) 01/27/20 02:34 Carbon Dioxide 25.0 mmol/L (21.0-32.0) 01/27/20 02:34 BUN 15 mg/dL (7.0-18.0) 01/27/20 02:34 Creatinine 1.1 mg/dL (0.6-1.0) H 01/27/20 02:34 Est Cr Clr Drug Dosing TNP 01/27/20 02:34 Estimated GFR (MDRD) > 60.0 ml/min 01/27/20 02:34 Glucose 106 mg/dL (74-106) 01/27/20 02:34 Calcium 9.1 mg/dL (8.5-10.1) 01/27/20 02:34 HCG, Quant 4142.0 mIU/mL 01/27/20 02:34 Urine Color YELLOW 01/27/20 02:30 Urine Appearance SLT CLOUDY 01/27/20 02:30 Urine pH 6.5 (5.0-8.0) 01/27/20 02:30 Ur Specific [place] 1.025 (1.001-1.035) 01/27/20 02:30 Urine Protein NEGATIVE mg/dL (NEGATIVE) 01/27/20 02:30 Urine Glucose (UA) NEGATIVE mg/dL (NEGATIVE) 01/27/20 02:30 Urine Ketones NEGATIVE mg/dL (NEGATIVE) 01/27/20 02:30 Urine Occult Blood MODERATE (NEGATIVE) H 01/27/20 02:30 Urine Nitrite NEGATIVE (NEGATIVE) 01/27/20 02:30 Urine Bilirubin NEGATIVE (NEGATIVE) 01/27/20 02:30 Urine Urobilinogen 0.2 EU/dL (<2.0) 01/27/20 02:30 Ur Leukocyte Esterase NEGATIVE (NEGATIVE) 01/27/20 02:30 Urine RBC 8-12 (0-2/HPF) 01/27/20 02:30 Urine WBC 0-2 (0-5/HPF) 01/27/20 02:30 Ur Epithelial Cells OCCASIONAL (NONE-FEW) 01/27/20 02:30 Urine Bacteria RARE (NEGATIVE) 01/27/20 02:30 Urine HCG, Qual POSITIVE (NEGATIVE) 01/27/20 02:30 SARS-CoV-2 RNA (AMANDA) NEGATIVE (NEGATIVE) 01/27/20 04:40 Blood Type O POSITIVE 01/27/20 03:23 Antibody Screen NEGATIVE 01/27/20 03:23 Crossmatch See Detail 01/27/20 03:23 - Allergies Allergies/Adverse Reactions: Allergies Allergy/AdvReac Type Severity Reaction Status Date / Time No Known Allergies Allergy Verified 01/27/20 06:24 - Anesthesia Plan Pre-Op Medication Ordered: None - Acknowledgements Anesthesia Type Planned: General Anesthesia Pt an Appropriate Candidate for the Planned Anesthesia: Yes Alternatives and Risks of Anesthesia Discussed w Pt/Guardian: Yes Pt/Guardian Understands and Agrees with Anesthesia Plan: Yes PreAnesthesia Questionnaire - Past Health History Medical/Surgical History: Denies Medical/Surgical History HEENT History: Reports: None Cardiovascular History: Reports: Hypertension Respiratory History: Reports: None Gastrointestinal History: Reports: None Genitourinary History: Reports: None 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 Musculoskeletal History: Reports: None Neurological History: Reports: None Psychiatric History: Reports: None Endocrine/Metabolic History: Reports: None Hematologic History: Reports: None Immunologic History: Reports: None Oncologic (Cancer) History: Reports: None Dermatologic History: Reports: None - Infectious Disease History Infectious Disease History: Reports: None - Past Surgical History Head Surgeries/Procedures: Reports: None HEENT Surgical History: Reports: None Cardiovascular Surgical History: Reports: None GI Surgical History: Reports: None Female Surgical History: Reports: None Endocrine Surgical History: Reports: None Neurological Surgical History: Reports: None Musculoskeletal Surgical History: Reports: None Oncologic Surgical History: Reports: None Dermatological Surgical History: Reports: None - SUBSTANCE USE Smoking Status *Q: Never Smoker Recreational Drug Use History: No - HOME MEDS Home Medications: Home Meds Diclofenac Sodium [Voltaren] 75 mg PO BIDMEALS PRN #30 tab.cr 10/15/19 [Rx] amLODIPine [Norvasc] 5 mg PO DAILY 10/15/19 [History] predniSONE 60 mg PO WITHBREAKFAST 5 Days #15 tab 11/02/19 [Rx] traMADol [Ultram] 50 mg PO Q6H #15 tab 11/02/19 [Rx] - CURRENT (IN HOUSE) MEDS Current Meds: Current Medications Lactated Ringer's (Ringers, Lactated) 1,000 mls @ 125 mls/hr IV ASDIRECTED [facility] Last Admin: 01/27/20 06:46 Dose: 125 mls/hr Documented by: Morphine Sulfate (Morphine) 4 mg IVPUSH Q4H PRN PRN Reason: Abdominal Pain Discontinued Medications Dexamethasone (Dexamethasone) Confirm Administered Dose 40 mg .ROUTE .STK-MED ONE Stop: 01/27/20 08:23 Fentanyl (Sublimaze) Confirm Administered Dose 250 mcg .ROUTE .STK-MED ONE Stop: 01/27/20 08:24 Lidocaine (Xylocaine-Mpf 2%) Confirm Administered Dose 5 ml .ROUTE .STK-MED ONE Stop: 01/27/20 08:23 Midazolam HCl (Versed 1 Mg/Ml) Confirm Administered Dose 2 mg .ROUTE .STK-MED ONE Stop: 01/27/20 08:24 Morphine Sulfate (Morphine) 4 mg IVPUSH ONETIME ONE Stop: 01/27/20 02:43 Last Admin: 01/27/20 02:43 Dose: 4 mg Documented by: Morphine Sulfate (Morphine) Confirm Administered Dose 4 mg .ROUTE .STK-MED ONE Stop: 01/27/20 02:42 Last Admin: 01/27/20 02:51 Dose: Not Given Documented by: Octyl Cyanoacrylate (Dermabond Advance) Confirm Administered Dose 1 applic .ROUTE .STK-MED ONE Stop: 01/27/20 08:34 Ondansetron HCl (Zofran) Confirm Administered Dose 4 mg .ROUTE .STK-MED ONE Stop: 01/27/20 08:23 Propofol (Diprivan 20 Ml) Confirm Administered Dose 200 mg .ROUTE .STK-MED ONE Stop: 01/27/20 08:24 Propofol (Diprivan 20 Ml) Confirm Administered Dose 200 mg .ROUTE .STK-MED ONE Stop: 01/27/20 08:33 Rocuronium [place] (Rocuronium [place]) Confirm Administered Dose 50 mg .ROUTE .STK-MED ONE Stop: 01/27/20 08:23
[2020-01-27] MEDS ORDERED: Glycopyrrolate 0.2 MG/ML SDV ONE (09:48)
--- NOTE | 2020-01-27 10:46 | PCM.DCSUM1 ---
Discharge Summary - Hospital Course Diagnosis: Stroke: No - Discharge Data Discharge Date: 01/27/20 Discharge Disposition: Home, Self-Care 01 Condition: Stable - Referral to Home Health Primary Care Physician: PCP None - Patient Instructions Diet: Usual Diet as Tolerated Activity: As Tolerated Driving: Do Not Drive Showering/Bathing: May Shower - Discharge Plan *PRESCRIPTION DRUG MONITORING PROGRAM REVIEWED*: No *COPY OF PRESCRIPTION DRUG MONITORING REPORT IN PATIENT CHRISTA: No Home Medications: Home Meds Diclofenac Sodium [Voltaren] 75 mg PO BIDMEALS PRN #30 tab.cr 10/15/19 [Rx] amLODIPine [Norvasc] 5 mg PO DAILY 10/15/19 [History] predniSONE 60 mg PO WITHBREAKFAST 5 Days #15 tab 11/02/19 [Rx] traMADol [Ultram] 50 mg PO Q6H #15 tab 11/02/19 [Rx] Forms: ED Department Discharge Referrals: PCP,None [Primary Care Provider] - - Discharge Summary/Plan Comment DC Time >30 min.: Yes - General Info Date of Service: 01/27/20 Functional Status: Reports: Pain Controlled - Review of Systems General: Reports: No Symptoms HEENT: Reports: No Symptoms Pulmonary: Reports: No Symptoms Cardiovascular: Reports: No Symptoms Gastrointestinal: Reports: No Symptoms Genitourinary: Reports: No Symptoms Musculoskeletal: Reports: No Symptoms Skin: Reports: No Symptoms Neurological: Reports: No Symptoms Psychiatric: Reports: No Symptoms - Patient Data Vitals - Most Recent: Last Vital Signs Temp 36.6 C 01/27/20 08:00 Pulse 77 01/27/20 08:00 Resp 17 01/27/20 08:00 BP 109/65 01/27/20 08:00 Pulse Ox 98 01/27/20 08:00 Weight - Most Recent: 80.2 kg Lab Results - Last 24 hrs: Laboratory Results - last 24 hr 01/27/20 01/27/20 01/27/20 Range/Units 02:30 02:30 02:34 WBC 7.97 (4.0-11.0) K/uL RBC 4.46 (4.30-5.90) M/uL Hgb 13.9 (12.0-16.0) g/dL Hct 41.7 (36.0-46.0) % MCV 93.5 (80.0-98.0) fL MCH 31.2 (27.0-32.0) pg MCHC 33.3 (31.0-37.0) g/dL RDW Std Deviation 46.8 (28.0-62.0) fl RDW Coeff of Tanner 14 (11.0-15.0) % Plt Count 193 (150-400) K/uL MPV 11.60 (7.40-12.00) fL Neut % (Auto) 46.1 L (48.0-80.0) % Lymph % (Auto) 42.2 H (16.0-40.0) % [place] % (Auto) 8.7 (0.0-15.0) % Eos % (Auto) 2.5 (0.0-7.0) % Baso % (Auto) 0.5 (0.0-1.5) % Neut # (Auto) 3.7 (1.4-5.7) K/uL Lymph # (Auto) 3.4 H (0.6-2.4) K/uL [place] # (Auto) 0.7 (0.0-0.8) K/uL Eos # (Auto) 0.2 (0.0-0.7) K/uL Baso # (Auto) 0.0 (0.0-0.1) K/uL Nucleated RBC % 0.0 /100WBC Nucleated RBCs # 0 K/uL INR Sodium (136-145) mmol/L Potassium (3.5-5.1) mmol/L Chloride (98-107) mmol/L Carbon Dioxide (21.0-32.0) mmol/L BUN (7.0-18.0) mg/dL Creatinine (0.6-1.0) mg/dL Est Cr Clr Drug Dosing Estimated GFR (MDRD) ml/min Glucose (74-106) mg/dL Calcium (8.5-10.1) mg/dL HCG, Quant mIU/mL Urine Color YELLOW Urine Appearance SLT CLOUDY Urine pH 6.5 (5.0-8.0) Ur Specific [place] 1.025 (1.001-1.035) Urine Protein NEGATIVE (NEGATIVE) mg/dL Urine Glucose (UA) NEGATIVE (NEGATIVE) mg/dL Urine Ketones NEGATIVE (NEGATIVE) mg/dL Urine Occult Blood MODERATE H (NEGATIVE) Urine Nitrite NEGATIVE (NEGATIVE) Urine Bilirubin NEGATIVE (NEGATIVE) Urine Urobilinogen 0.2 (<2.0) EU/dL Ur Leukocyte Esterase NEGATIVE (NEGATIVE) Urine RBC 8-12 (0-2/HPF) Urine WBC 0-2 (0-5/HPF) Ur Epithelial Cells OCCASIONAL (NONE-FEW) Urine Bacteria RARE (NEGATIVE) Urine HCG, Qual POSITIVE (NEGATIVE) SARS-CoV-2 RNA (AMANDA) (NEGATIVE) Blood Type Antibody Screen Crossmatch 01/27/20 01/27/20 01/27/20 Range/Units 02:34 02:34 03:23 WBC (4.0-11.0) K/uL RBC (4.30-5.90) M/uL Hgb (12.0-16.0) g/dL Hct (36.0-46.0) % MCV (80.0-98.0) fL MCH (27.0-32.0) pg MCHC (31.0-37.0) g/dL RDW Std Deviation (28.0-62.0) fl RDW Coeff of Tanner (11.0-15.0) % Plt Count (150-400) K/uL MPV (7.40-12.00) fL Neut % (Auto) (48.0-80.0) % Lymph % (Auto) (16.0-40.0) % [place] % (Auto) (0.0-15.0) % Eos % (Auto) (0.0-7.0) % Baso % (Auto) (0.0-1.5) % Neut # (Auto) (1.4-5.7) K/uL Lymph # (Auto) (0.6-2.4) K/uL [place] # (Auto) (0.0-0.8) K/uL Eos # (Auto) (0.0-0.7) K/uL Baso # (Auto) (0.0-0.1) K/uL Nucleated RBC % /100WBC Nucleated RBCs # K/uL INR 1.05 Sodium 138 (136-145) mmol/L Potassium 3.8 (3.5-5.1) mmol/L Chloride 104 (98-107) mmol/L Carbon Dioxide 25.0 (21.0-32.0) mmol/L BUN 15 (7.0-18.0) mg/dL Creatinine 1.1 H (0.6-1.0) mg/dL Est Cr Clr Drug Dosing TNP Estimated GFR (MDRD) > 60.0 ml/min Glucose 106 (74-106) mg/dL Calcium 9.1 (8.5-10.1) mg/dL HCG, Quant 4142.0 mIU/mL Urine Color Urine Appearance Urine pH (5.0-8.0) Ur Specific [place] (1.001-1.035) Urine Protein (NEGATIVE) mg/dL Urine Glucose (UA) (NEGATIVE) mg/dL Urine Ketones (NEGATIVE) mg/dL Urine Occult Blood (NEGATIVE) Urine Nitrite (NEGATIVE) Urine Bilirubin (NEGATIVE) Urine Urobilinogen (<2.0) EU/dL Ur Leukocyte Esterase (NEGATIVE) Urine RBC (0-2/HPF) Urine WBC (0-5/HPF) Ur Epithelial Cells (NONE-FEW) Urine Bacteria (NEGATIVE) Urine HCG, Qual (NEGATIVE) SARS-CoV-2 RNA (AMANDA) (NEGATIVE) Blood Type O POSITIVE Antibody Screen NEGATIVE Crossmatch See Detail 01/27/20 Range/Units 04:40 WBC (4.0-11.0) K/uL RBC (4.30-5.90) M/uL Hgb (12.0-16.0) g/dL Hct (36.0-46.0) % MCV (80.0-98.0) fL MCH (27.0-32.0) pg MCHC (31.0-37.0) g/dL RDW Std Deviation (28.0-62.0) fl RDW Coeff of Tanner (11.0-15.0) % Plt Count (150-400) K/uL MPV (7.40-12.00) fL Neut % (Auto) (48.0-80.0) % Lymph % (Auto) (16.0-40.0) % [place] % (Auto) (0.0-15.0) % Eos % (Auto) (0.0-7.0) % Baso % (Auto) (0.0-1.5) % Neut # (Auto) (1.4-5.7) K/uL Lymph # (Auto) (0.6-2.4) K/uL [place] # (Auto) (0.0-0.8) K/uL Eos # (Auto) (0.0-0.7) K/uL Baso # (Auto) (0.0-0.1) K/uL Nucleated RBC % /100WBC Nucleated RBCs # K/uL INR Sodium (136-145) mmol/L Potassium (3.5-5.1) mmol/L Chloride (98-107) mmol/L Carbon Dioxide (21.0-32.0) mmol/L BUN (7.0-18.0) mg/dL Creatinine (0.6-1.0) mg/dL Est Cr Clr Drug Dosing Estimated GFR (MDRD) ml/min Glucose (74-106) mg/dL Calcium (8.5-10.1) mg/dL HCG, Quant mIU/mL Urine Color Urine Appearance Urine pH (5.0-8.0) Ur Specific [place] (1.001-1.035) Urine Protein (NEGATIVE) mg/dL Urine Glucose (UA) (NEGATIVE) mg/dL Urine Ketones (NEGATIVE) mg/dL Urine Occult Blood (NEGATIVE) Urine Nitrite (NEGATIVE) Urine Bilirubin (NEGATIVE) Urine Urobilinogen (<2.0) EU/dL Ur Leukocyte Esterase (NEGATIVE) Urine RBC (0-2/HPF) Urine WBC (0-5/HPF) Ur Epithelial Cells (NONE-FEW) Urine Bacteria (NEGATIVE) Urine HCG, Qual (NEGATIVE) SARS-CoV-2 RNA (AMANDA) NEGATIVE (NEGATIVE) Blood Type Antibody Screen Crossmatch Med Orders - Current: Current Medications Fentanyl (Sublimaze) 50 mcg IVPUSH Q5M PRN PRN Reason: Pain (severe 7-10) Stop: 01/28/20 09:53 Lactated Ringer's (Ringers, Lactated) 1,000 mls @ 125 mls/hr IV ASDIRECTED [facility] Last Admin: 01/27/20 06:46 Dose: 125 mls/hr Documented by: Morphine Sulfate (Morphine) 4 mg IVPUSH Q4H PRN PRN Reason: Abdominal Pain Discontinued Medications Dexamethasone (Dexamethasone) Confirm Administered Dose 40 mg .ROUTE .STK-MED ONE Stop: 01/27/20 08:23 Fentanyl (Sublimaze) Confirm Administered Dose 250 mcg .ROUTE .STK-MED ONE Stop: 01/27/20 08:24 Glycopyrrolate (Robinul) Confirm Administered Dose 0.4 mg .ROUTE .STK-MED ONE Stop: 01/27/20 09:49 Lidocaine (Xylocaine-Mpf 2%) Confirm Administered Dose 5 ml .ROUTE .STK-MED ONE Stop: 01/27/20 08:23 Midazolam HCl (Versed 1 Mg/Ml) Confirm Administered Dose 2 mg .ROUTE .STK-MED ONE Stop: 01/27/20 08:24 Morphine Sulfate (Morphine) 4 mg IVPUSH ONETIME ONE Stop: 01/27/20 02:43 Last Admin: 01/27/20 02:43 Dose: 4 mg Documented by: Morphine Sulfate (Morphine) Confirm Administered Dose 4 mg .ROUTE .STK-MED ONE Stop: 01/27/20 02:42 Last Admin: 01/27/20 02:51 Dose: Not Given Documented by: Octyl Cyanoacrylate (Dermabond Advance) Confirm Administered Dose 1 applic .ROUTE .STK-MED ONE Stop: 01/27/20 08:34 Ondansetron HCl (Zofran) Confirm Administered Dose 4 mg .ROUTE .STK-MED ONE Stop: 01/27/20 08:23 Propofol (Diprivan 20 Ml) Confirm Administered Dose 200 mg .ROUTE .STK-MED ONE Stop: 01/27/20 08:24 Propofol (Diprivan 20 Ml) Confirm Administered Dose 200 mg .ROUTE .STK-MED ONE Stop: 01/27/20 08:33 Rocuronium [place] (Rocuronium [place]) Confirm Administered Dose 50 mg .ROUTE .STK-MED ONE Stop: 01/27/20 08:23 - Exam General: Reports: Alert, Oriented HEENT: Reports: Pupils Equal, Pupils Reactive, EOMI, Mucous Membr. Moist/[place] Neck: Reports: Supple Lungs: Reports: Clear to Auscultation, Normal Respiratory Effort Cardiovascular: Reports: Regular Rate, Regular Rhythm GI/Abdominal Exam: Normal Bowel Sounds, Soft, Non-Tender, No Organomegaly, No Distention, No Abnormal Bruit, No Mass, Pelvis Stable (Female) Exam: Normal External Exam, Normal Speculum Exam, Normal Bimanual Exam Rectal (Female) Exam: Normal Exam, Normal Rectal Tone Back Exam: Reports: Normal Inspection, Full Range of Motion Extremities: Normal Inspection, Normal Range of Motion, Non-Tender, No Pedal Edema, Normal Capillary Refill Skin: Reports: Warm, Dry, Intact Wound/Incisions: Reports: Healing Well Neurological: Reports: No New Focal Deficit Psy/Mental Status: Reports: Alert, Normal Affect, Normal Mood
[2020-01-27] MEDS: fentaNYL 100 MCG/2 ML SDV IVPUSH PRN ×2 (11:04→11:14)
--- NOTE | 2020-01-27 11:29 | PCM.POSTAN ---
POST ANESTHESIA ASSESSMENT - MENTAL STATUS Mental Status: Alert, Oriented - VITAL SIGNS Vital Signs: Last Vital Signs Temp 37.4 C 01/27/20 10:46 Pulse 63 01/27/20 11:23 Resp 19 01/27/20 11:23 BP 116/76 01/27/20 11:23 Pulse Ox 99 01/27/20 11:23 - RESPIRATORY Respiratory Status: Respiratory Rate WNL, Airway Patent, O2 Saturation Stable - CARDIOVASCULAR CV Status: Pulse Rate WNL, Blood Pressure Stable - GASTROINTESTINAL GI Status: No Symptoms - PAIN Pain Score: 4 - POST OP HYDRATION Hydration Status: Adequate & Stable
--- NOTE | 2020-01-27 14:20 | PCM48HPAN ---
Post Anesthesia Note - EVALUATION WITHIN 48HRS OF ANESTHETIC Vital Signs in Normal Range: Yes Patient Participated in Evaluation: Yes Respiratory Function Stable: Yes Airway Patent: Yes Cardiovascular Function Stable: Yes Hydration Status Stable: Yes Pain Control Satisfactory: Yes (states having pain, RN notified) Nausea and Vomiting Control Satisfactory: Yes Mental Status Recovered: Yes Vital Signs: Last Vital Signs Temp 36.5 C 01/27/20 12:40 Pulse 66 01/27/20 12:40 Resp 18 01/27/20 12:40 BP 115/72 01/27/20 12:40 Pulse Ox 98 01/27/20 12:40
--- NOTE | 2020-01-29 10:24 | OR ---
SURGEON: Juan Carlos Elliott MD DATE OF PROCEDURE: 01/27/2020 PREOPERATIVE DIAGNOSIS: Ruptured left tubal . POSTOPERATIVE DIAGNOSIS: Ruptured left tubal . OPERATION PERFORMED: Multiple-puncture diagnostic laparoscopy, excision of left tubal by doing left distal salpingectomy and excision of inclusion cyst on the right tube. PRIMARY SURGEON: Dr. Elliott. SENIOR [employer]ACLE SO[employer] DEVELOPER: OR tech. ANESTHESIA: General endotracheal intubation, Jodi Delatorre CRNA. ESTIMATED BLOOD LOSS: 300 mL. COMPLICATIONS: None. FINDING: Ruptured and leaking left tubal . The patient had pelvic adhesion from probably previously chlamydia. There was an inclusion cyst on the right tube, I excised that later. INDICATION FOR SURGERY: This patient presented to the emergency room with pain and discomfort, and she had positive hCG with level of 4000. Ultrasound confirmed that patient had left tubal with hematoperitoneum. PROCEDURE IN DETAIL: The patient was brought to the OR, properly identified and after adequate level of anesthesia, the patient placed in lithotomy position with an access to the abdomen and the vagina. The patient was prepped and draped in sterile fashion as usual. A weighted speculum placed in the vagina and Hulka manipulator placed in the uterus for manipulation. The operation shifted abdominally. Stab wound done beneath the umbilicus. The Veress needle was placed in the peritoneal cavity and that cavity insufflated with 3.5 L of carbon dioxide, and then a 5 mm trocar inserted beneath the umbilicus utilizing the Visiport technique. Once we entered, placed the patient in steep Trendelenburg and 10/12 trocar placed in the left iliac fossa and 5 mm trocar on the right side, and inspection of the pelvis revealed the above mentioned dictated finding. The operation was started by thorough irrigation of the pelvis and removal of blood and blood clots. Once that was done, the left tubal exposed and a distal salpingectomy was performed using the Andres Harmonic scalpel and the distal portion of that tube with the tubal placed in Endobag and removed without any problem. Then, thorough irrigation was performed again and there was no oozing or bleeding. There was inclusion cyst on the antimesenteric side of the right tube. Again using the help of the Andres Harmonic Scalpel, the cyst was excised and removed. Again, after thorough irrigation of the pelvis, there was no oozing, no bleeding, at this time satisfied with these finding, the procedure ended. The instrument and hardware retrieved from the abdomen and the vagina. The multiple laparoscopic incisions were closed with 3-0 Vicryl in layer and Dermabond. Instrument and sponge count were correct. The patient tolerated the procedure well and went to recovery room in stable general condition. TIANNA / MORENO /[id number]
== END 2020-01-27 16:00 | disposition home or self-care (01) ==
LOC: MW.ED 02:00 → MW.SDS 04:47 → MW.MS 04:48 → MW.SDS 16:00
PROVIDERS: ATTEND Obstetrics & Gynecology
DX: O00.102 Left tubal pregnancy without intrauterine pregnancy (principal); N83.8 Other noninflammatory disorders of ovary, fallopian tube and broad ligament; I10 Essential (primary) hypertension; Z01.812 Encounter for preprocedural laboratory examination; Z20.828 Contact with and (suspected) exposure to other viral communicable diseases; Z79.899 Other long term (current) drug therapy
CPT/HCPCS: 36415; 58661; 76817; 80048; 81001; 81025; 84702; 85025; 85610; 86850; 86900; 86901; 87635; 88305; 96374; 99285; A9270; J1100; J2001; J2250; J2270; J2405; J2704; J3010; J3490; J7120; 00840; 86920; 86921; 86922; 99283; U0002

== ENCOUNTER 2020-02-06 13:49 | Emergency (ER) | payer MEDICAID, OTHER ==
--- NOTE | 2020-02-06 14:25 | EDM.PDOC ---
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 Patient states that 10 days ago on January 27, 2020 she had a tubal . She had surgery by Dr. [place] Elliott. and released to home within 24 hours. She was well until 3 days ago when she started with her symptoms. Review of the records indicates patient underwent left salpingectomy and tubal . Discharge hemoglobin was 13.9. - Related Data Allergies Allergy/AdvReac Type Severity Reaction Status Date / Time No Known Allergies Allergy Verified 02/06/20 13:59 Home Meds: Home Meds amLODIPine [Norvasc] 5 mg PO DAILY 10/15/19 [History] FA/Lycopene/Lut/MV,Ca,Iron,Min [Centrum] 1 tab PO DAILY 02/06/20 [History] amLODIPine [Norvasc] 5 mg PO DAILY #14 tab 02/06/20 [Rx] Past Medical History - Past Health History Medical/Surgical History: Denies Medical/Surgical History HEENT History: Reports: None Cardiovascular History: Reports: Hypertension Respiratory History: Reports: None Gastrointestinal History: Reports: None Genitourinary History: Reports: None 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[employer]ODUCT 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 History: miscarriage x2 Musculoskeletal History: Reports: None Neurological History: Reports: None Psychiatric History: Reports: None Endocrine/Metabolic History: Reports: None Hematologic History: Reports: None Immunologic History: Reports: None Oncologic (Cancer) History: Reports: None Dermatologic History: Reports: None - Infectious Disease History Infectious Disease History: Reports: None - Past Surgical History Head Surgeries/Procedures: Reports: None HEENT Surgical History: Reports: None Cardiovascular Surgical History: Reports: None GI Surgical History: Reports: None Female Surgical History: Reports: None Endocrine Surgical History: Reports: None Neurological Surgical History: Reports: None Musculoskeletal Surgical History: Reports: None Oncologic Surgical History: Reports: None Dermatological Surgical History: Reports: None Social & Family History - Family History Family Medical History: Noncontributory - Tobacco Use Tobacco Use Status *Q: Never Tobacco User - Caffeine Use Caffeine Use: Reports: Coffee, Tea - Recreational Drug Use Recreational Drug Use: No ED ROS GENERAL - Review of Systems Review Of Systems: Comprehensive ROS is negative, except as noted in HPI. ED EXAM, RENAL/ - Physical Exam Exam: See Below General Appearance: Alert, No Apparent Distress Ears: Normal External Exam Nose: Normal Inspection Throat/Mouth: Normal Inspection Head: Atraumatic, Normocephalic Neck: Normal Inspection Respiratory/Chest: No Respiratory Distress, Lungs Clear, Normal Breath Sounds Cardiovascular: Normal Peripheral Pulses, Regular Rate, Rhythm, No Edema GI/Abdominal: Normal Bowel Sounds, Soft, Tender (mild, pelvic) Extremities: Normal Inspection Neurological: Alert, Oriented Psychiatric: Normal Affect, Normal Mood Skin Exam: Warm, Dry, Intact, Normal Color, No Rash Lymphatic: No Adenopathy Course - Vital Signs Last Recorded V/S: Last Vital Signs Temp 36.6 C 02/06/20 14:00 Pulse 98 02/06/20 14:00 Resp 17 02/06/20 14:00 BP 130/94 H 02/06/20 14:00 Pulse Ox 97 02/06/20 14:00 - Orders/Labs/Meds Orders: Active Orders 24 hr Category Date Time Status CORONAVIRUS COVID-19 PCR [facility] Stat Lab 02/06/20 15:30 Ordered Labs: Laboratory Tests 02/06/20 02/06/20 02/06/20 Range/Units 14:12 14:50 14:50 WBC 4.38 (4.0-11.0) K/uL RBC 4.05 L (4.30-5.90) M/uL Hgb 12.5 (12.0-16.0) g/dL Hct 38.1 (36.0-46.0) % MCV 94.1 (80.0-98.0) fL MCH 30.9 (27.0-32.0) pg MCHC 32.8 (31.0-37.0) g/dL RDW Std Deviation 47.4 (28.0-62.0) fl RDW Coeff of Tanner 14 (11.0-15.0) % Plt Count 207 (150-400) K/uL MPV 11.10 (7.40-12.00) fL Neut % (Auto) 44.8 L (48.0-80.0) % Lymph % (Auto) 44.3 H (16.0-40.0) % [place] % (Auto) 10.5 (0.0-15.0) % Eos % (Auto) 0.2 (0.0-7.0) % Baso % (Auto) 0.2 (0.0-1.5) % Neut # (Auto) 2.0 (1.4-5.7) K/uL Lymph # (Auto) 1.9 (0.6-2.4) K/uL [place] # (Auto) 0.5 (0.0-0.8) K/uL Eos # (Auto) 0.0 (0.0-0.7) K/uL Baso # (Auto) 0.0 (0.0-0.1) K/uL Nucleated RBC % 0.0 /100WBC Nucleated RBCs # 0 K/uL Sodium 140 (136-145) mmol/L Potassium 4.1 (3.5-5.1) mmol/L Chloride 104 (98-107) mmol/L Carbon Dioxide 26.7 (21.0-32.0) mmol/L BUN 10 (7.0-18.0) mg/dL Creatinine 1.0 (0.6-1.0) mg/dL Est Cr Clr Drug Dosing 72.00 mL/min Estimated GFR (MDRD) > 60.0 ml/min Glucose 123 H (74-106) mg/dL Calcium 8.9 (8.5-10.1) mg/dL Total Bilirubin 0.2 (0.2-1.0) mg/dL AST 28 (15-37) IU/L ALT 20 (14-63) IU/L Alkaline Phosphatase 70 (46-116) U/L Total Protein 7.3 (6.4-8.2) g/dL Albumin 3.5 (3.4-5.0) g/dL Globulin 3.8 (2.6-4.0) g/dL Albumin/Globulin Ratio 0.9 (0.9-1.6) Urine Color YELLOW Urine Appearance CLEAR Urine pH 6.0 (5.0-8.0) Ur Specific [place] 1.015 (1.001-1.035) Urine Protein NEGATIVE (NEGATIVE) mg/dL Urine Glucose (UA) NEGATIVE (NEGATIVE) mg/dL Urine Ketones NEGATIVE (NEGATIVE) mg/dL Urine Occult Blood TRACE-INTACT H (NEGATIVE) Urine Nitrite NEGATIVE (NEGATIVE) Urine Bilirubin NEGATIVE (NEGATIVE) Urine Urobilinogen 0.2 (<2.0) EU/dL Ur Leukocyte Esterase NEGATIVE (NEGATIVE) Urine RBC 0-2 (0-2/HPF) Urine WBC NONE SEEN (0-5/HPF) Ur Epithelial Cells RARE (NONE-FEW) Urine Bacteria NOT SEEN (NEGATIVE) - Re-Assessments/Exams Free Text/Narrative Re-Assessment/Exam: 02/06/20 15:31 The patient states she has a headache, is so tired and weak, she feels like she might fall down. Labs unremarkable. Free Text/Narrative Re-Assessment/Exam: 02/06/20 16:01 Now, the patient states that she doesn't feel good, she takes her Amlodipine but she doesn't have any Amlodipine. Departure - Departure Time of Disposition: 17:01 Disposition: Home, Self-Care 01 Condition: Good Clinical Impression: COVID-19 - Discharge Information *PRESCRIPTION DRUG MONITORING PROGRAM REVIEWED*: Not Applicable *COPY OF PRESCRIPTION DRUG MONITORING REPORT IN PATIENT CHRISTA: Not Applicable Instructions: COVID-19 Referrals: PCP,None [Primary Care Provider] - [facility] [Outside] José Garland [Ordering Only Provider] - Forms: ED Department Discharge Additional Instructions: The following information is given to patients seen in the emergency department who are being discharged to home. This information is to outline your options for follow-up care. We provide all patients seen in our emergency department with a follow-up referral. The need for follow-up, as well as the timing and circumstances, are variable depending upon the specifics of your emergency department visit. If you don't have a primary care physician on staff, we will provide you with a referral. We always advise you to contact your personal physician following an emergency department visit to inform them of the circumstance of the visit and for follow-up with them and/or the need for any referrals to a consulting specialist. The emergency department will also refer you to a specialist when appropriate. This referral assures that you have the opportunity for follow-up care with a specialist. All of these measure are taken in an effort to provide you with optimal care, which includes your follow-up. Under all circumstances we always encourage you to contact your private physician who remains a resource for coordinating your care. When calling for follow-up care, please make the office aware that this follow-up is from your recent emergency room visit. If for any reason you are refused follow-up, please contact the [facility] Emergency Department at and asked to speak to the emergency department charge nurse. 1. You must at-home quarantine for the next 10 days. Follow CDC quarantine guidelines for those living with you. 2. Drink plenty of fluids and rest 3. Tylenol or ibuprofen as needed for body aches and fever 4. You must take your blood pressure medication every day. Blood pressure me dication is not "as needed". A bridge prescription has been provided for you and is available at [facility]. You must follow-up in primary care for evaluation and medication refills when your quarantine period is over. 5. Warning signs to return to the ER include shortness of breath. Sepsis Event Note (ED) - Evaluation Sepsis Screening Result: Possible Sepsis Risk - Focused Exam Vital Signs: Vital Signs Temp Pulse Resp BP Pulse Ox 02/06/20 14:00 36.6 C 98 17 130/94 H 97 - My Orders Last 24 Hours: My Active Orders 02/06/20 15:30 CORONAVIRUS COVID-19 PCR [facility] Stat - Assessment/Plan Last 24 Hours: My Active Orders 02/06/20 15:30 CORONAVIRUS COVID-19 PCR [facility] Stat
[2020-02-06 15:21] LABS: BLOOD UREA NITROGEN,BUN 10 mg/dL (7.0-18.0); CARBON DIOXIDE,CO2 26.7 mmol/L (21.0-32.0); CHLORIDE,CL 104 mmol/L (98-107); GLUCOSE RANDOM 123 mg/dL (74-106); POTASSIUM,K 4.1 mmol/L (3.5-5.1); SODIUM,NA 140 mmol/L (136-145)
== END 2020-02-06 17:25 | disposition home or self-care (01) ==
LOC: MW.ED 13:49
DX: U07.1 COVID-19 (principal); I10 Essential (primary) hypertension; Z79.899 Other long term (current) drug therapy
CPT/HCPCS: 36415; 80053; 81001; 85025; 99283; 99284; U0002

== ENCOUNTER 2024-04-10 02:41 | Emergency (ER) | payer BC ==
[2024-04-10 04:14] LABS: BASOPHILS ABSOLUTE AUTO 0.05 K/uL (0.00-0.20); BASOPHILS PERCENT AUTO 0.7 % (0.0-1.0); EOSINOPHILS ABSOLUTE AUTO 0.07 K/uL (0.00-0.45); HEMATOCRIT 43.5 % (37.0-47.0); HEMOGLOBIN 14.8 g/dL (12.0-16.0); IMMATURE GRAN ABSOLUTE AUTO 0.01 K/uL (0.00-0.05); IMMATURE GRAN PERCENT AUTO 0.1 % (0.0-0.4); LYMPHOCYTES ABSOLUTE AUTO 2.98 K/uL (1.00-4.80); LYMPHOCYTES PERCENT AUTO 40.7 % (24.0-44.0); MEAN CORPUSCULAR HEMOGLOBIN 30.9 pg (28.0-32.0); MEAN CORPUSCULAR VOLUME 90.8 fL (83.0-99.0); MEAN PLATELET VOLUME 10.9 fL (9.4-12.3); MONOCYTES ABSOLUTE AUTO 0.75 K/uL (0.00-0.80); MONOCYTES PERCENT AUTO 10.2 % (0.0-8.0); NEUTROPHILS ABSOLUTE AUTO 3.47 K/uL (1.80-7.70); NEUTROPHILS PERCENT AUTO 47.3 % (41.0-71.0); PLATELET COUNT,PLT 209 K/uL (150-400); RED BLOOD CELL COUNT 4.79 M/uL (4.10-5.30); WHITE BLOOD CELL COUNT,WBC 7.33 K/uL (3.9-11.3)
[2024-04-10] MEDS: Sodium Chloride 0.9% 1,000 ML IV ONE (04:16)
[2024-04-10] MEDS: Dexamethasone 4 MG/ML SDV IVPUSH STA (04:16)
[2024-04-10] MEDS: Ondansetron 4 MG/2 ML SDV IVPUSH ONE (04:17)
[2024-04-10 04:37] LABS: BLOOD UREA NITROGEN,BUN 35 mg/dL (7.0-18.0); CALCIUM 9.3 mg/dL (8.5-10.1); CARBON DIOXIDE,CO2 30.8 mmol/L (21.0-32.0); CHLORIDE,CL 97 mmol/L (98-107); CREATININE 1.5 mg/dL (0.6-1.0); GLUCOSE RANDOM 115 mg/dL (74-106); POTASSIUM,K 3.8 mmol/L (3.5-5.1); SODIUM,NA 136 mmol/L (136-145)
[2024-04-10 04:38] LABS: ESTIMATED GFR 43 mL/min (>60)
== END 2024-04-10 05:42 | disposition home or self-care (01) ==
LOC: MW.ED 02:41
DX: E86.0 Dehydration (principal); I10 Essential (primary) hypertension; Z79.899 Other long term (current) drug therapy
CPT/HCPCS: 36415; 71045; 80048; 84484; 85025; 85379; 93005; 96361; 96374; 96375; 99284; J1100; J2405; J7030; 93010; 99283